=== PATIENT | female | born 1960 | race Caucasian/White ===

== ENCOUNTER 2020-02-12 08:05 | Outpatient (REF) | payer OTHER, SELFPAY ==
--- NOTE | 2020-02-12 08:10 | MM_ITS ---
EXAMINATION: MM SCREENING DIGITAL BREAST TOMOSYNTHESIS, BILATERAL CLINICAL INFORMATION: Screening. Asymptomatic. The lifetime risk of breast cancer based on the Tyrer-Cuzick Model is 7%. COMPARISON: Mammography: 02/06/2019, 02/07/2017 TECHNIQUE: Digital breast tomosynthesis is performed in both the craniocaudal and mediolateral oblique views along with computer-aided detection (CAD). Synthesized 2D images are generated from the tomosynthesis. FINDINGS: There are scattered areas of fibroglandular density (ACR BI-RADS breast composition Category b). There are no significant masses, abnormal calcifications, or other abnormalities. There is no developing density. Biopsy clip marker again seen right breast upper outer quadrant with adjacent stable punctate calcifications. No significant changes. MM/MM tomosynthesis screening BI IMPRESSION: No significant changes from prior studies. ASSESSMENT: BI-RADS 2: Benign RECOMMENDATION: Routine annual mammography screening. This patient's information was entered into a reminder system with a target due date for their next mammogram.
== END 2020-02-12 08:06 | disposition home or self-care (01) ==
LOC: HO.MAMMO 08:05
PROVIDERS: Visit Provider Internal Medicine
DX: Z12.31 Encounter for screening mammogram for malignant neoplasm of breast (principal)
CPT/HCPCS: 77063; 77067

== ENCOUNTER 2020-02-13 09:23 | Outpatient (REF) | payer OTHER, SELFPAY ==
[2020-02-13 10:18] LABS: Hematocrit 38.6 % (37-47); Hemoglobin 12.5 g/dl (12.0-16.0); Mean Corpuscular HGB Conc 32.4 g/dl (31.0-35.0); Mean Corpuscular Hemoglobin 30.9 pg (27.0-33.0); Mean Corpuscular Volume 95.3 fL (80-98); Mean Platelet Volume 10.2 fL (9.4-12.3); Platelet Count 189 X10*3/uL (160-400); Red Blood Count 4.05 X10*6/uL (4.20-5.50); Red Cell Distribution Width 11.9 % (11.0-16.0); White Blood Count 3.6 X10*3/uL (4.8-10.8)
[2020-02-13 10:49] LABS: Alanine Aminotransferase 18 U/L (0-31); Albumin Level 4.3 g/dL (3.5-5.0); Alkaline Phosphatase 103 U/L (39-117); Anion Gap 12 (12-20); Aspartate Amino Transferase 16 U/L (5-31); Bilirubin Direct 0.2 mg/dL (0.0-0.5); Bilirubin Total 0.5 mg/dL (0.0-1.0); Blood Urea Nitrogen 17 mg/dL (9-16); Calcium 8.9 mg/dL (8.4-10.2); Carbon Dioxide 28 mmol/L (22-29); Chloride 102 mmol/L (96-108); Estimated Glomerular Filt Rate > 60; Glucose Random 90 mg/dL (60-115); Potassium 3.9 mmol/l (3.3-5.1); Sodium 138 mmol/L (135-145)
[2020-02-14 14:52] LABS: Absolute CD3 Count 1058 cells/uL (840-3060); Absolute CD4 Count 359 cells/uL (490-1740); Absolute CD8 Count 677 cells/uL (180-1170); Absolute Lymphocytes 1424 cells/uL (850-3900); CD4 CD8 Ratio 0.53 (0.86-5.00); Percent CD3 Cells 74 % (57-85); Percent CD4 Cells 25 % (30-61); Percent CD8 Cells 48 % (12-42)
[2020-02-16 06:52] LABS: HIV RNA PCR Qn Copies <20 NOT DETECTED copies/mL (NOT DETECTED); HIV RNA PCR Qn Log Copies <1.30 NOT DETECTED (NOT DETECTED)
== END 2020-02-13 09:24 | disposition home or self-care (01) ==
LOC: HO.LAB 09:23
PROVIDERS: Visit Provider Internal Medicine
DX: B20 Human immunodeficiency virus [HIV] disease (principal)
CPT/HCPCS: 36415; 80048; 80076; 85027; 86359; 86360; 87536

== ENCOUNTER → 2020-02-26 15:21 | Outpatient (BNVA) | payer OTHER, SELFPAY | PROVIDERS: Visit Provider Internal Medicine | DX: Z76.89 Persons encountering health services in other specified circumstances (principal) ==

== ENCOUNTER 2020-09-04 10:02 | Outpatient (REF) | payer OTHER, SELFPAY ==
[2020-09-05 13:27] LABS: Absolute CD3 Count 1047 cells/uL (840-3060); Absolute CD4 Count 326 cells/uL (490-1740); Absolute CD8 Count 694 cells/uL (180-1170); Absolute Lymphocytes 1337 cells/uL (850-3900); CD4 CD8 Ratio 0.47 (0.86-5.00); Percent CD3 Cells 78 % (57-85); Percent CD4 Cells 24 % (30-61); Percent CD8 Cells 52 % (12-42)
== END 2020-09-04 10:03 | disposition home or self-care (01) ==
LOC: HO.LAB 10:02
PROVIDERS: Visit Provider Internal Medicine
DX: B20 Human immunodeficiency virus [HIV] disease (principal)
CPT/HCPCS: 36415; 86359; 86360

== ENCOUNTER → 2020-09-23 14:24 | Outpatient (BNVA) | payer OTHER, SELFPAY | PROVIDERS: Visit Provider Internal Medicine ==

== ENCOUNTER 2021-03-16 07:59 | Outpatient (REF) | payer OTHER, SELFPAY ==
--- NOTE | ~2021-03-16 | MM_ITS ---
EXAMINATION: MM SCREENING DIGITAL BREAST TOMOSYNTHESIS, BILATERAL CLINICAL INFORMATION: Screening. Asymptomatic. The lifetime risk of breast cancer based on the Tyrer-Cuzick Model is 4%. COMPARISON: Mammography: 02/12/2020, 02/06/2019, 02/07/2017, 07/21/2013 TECHNIQUE: Digital breast tomosynthesis is performed in both the craniocaudal and mediolateral oblique views along with computer-aided detection (CAD). Synthesized 2D images are generated from the tomosynthesis. FINDINGS: There are scattered areas of fibroglandular density (ACR BI-RADS breast composition Category b). There are no significant masses, abnormal calcifications, or other abnormalities. There are scattered bilateral vascular and punctate calcifications. Biopsy clip marker is again seen posterior upper outer right breast with adjacent calcifications similar to prior studies. MM/MM tomosynthesis screening BI IMPRESSION: No mammographic evidence of malignancy. ASSESSMENT: BI-RADS 2: Benign RECOMMENDATION: Routine annual mammography screening. This patient's information was entered into a reminder system with a target due date for their next mammogram.
== END 2021-03-16 08:00 | disposition home or self-care (01) ==
LOC: HO.MAMMO 07:59
PROVIDERS: Visit Provider Internal Medicine
DX: Z12.31 Encounter for screening mammogram for malignant neoplasm of breast (principal)
CPT/HCPCS: 77063; 77067

== ENCOUNTER 2021-04-01 13:18 | Outpatient (REF) | payer OTHER, SELFPAY ==
[2021-04-02 11:26] LABS: Absolute CD3 Count 1672 cells/uL (840-3060); Absolute CD4 Count 474 cells/uL (490-1740); Absolute CD8 Count 1165 cells/uL (180-1170); Absolute Lymphocytes 2077 cells/uL (850-3900); CD4 CD8 Ratio 0.41 (0.86-5.00); Percent CD3 Cells 81 % (57-85); Percent CD4 Cells 23 % (30-61); Percent CD8 Cells 56 % (12-42)
[2021-04-08 07:41] LABS: HIV RNA PCR Qn Copies <20 NOT DETECTED copies/mL (NOT DETECTED); HIV RNA PCR Qn Log Copies <1.30 NOT DETECTED (NOT DETECTED)
== END 2021-04-01 13:19 | disposition home or self-care (01) ==
LOC: HO.LAB 13:18
PROVIDERS: Visit Provider Internal Medicine
DX: B20 Human immunodeficiency virus [HIV] disease (principal)
CPT/HCPCS: 36415; 86359; 86360; 87536

== ENCOUNTER → 2021-04-10 13:42 | Outpatient (BNVA) | payer OTHER, SELFPAY | PROVIDERS: Visit Provider Internal Medicine ==

== ENCOUNTER 2021-11-13 07:00 | Outpatient (REF) | payer OTHER, SELFPAY ==
[2021-11-15 14:26] LABS: HIV RNA PCR Qn Copies NOT DETECTED copies/mL (NOT DETECTED); HIV RNA PCR Qn Log Copies NOT DETECTED (NOT DETECTED)
[2021-11-16 15:02] LABS: Absolute CD3 Count 1085 cells/uL (840-3060); Absolute CD4 Count 292 cells/uL (490-1740); Absolute CD8 Count 755 cells/uL (180-1170); Absolute Lymphocytes 1320 cells/uL (850-3900); CD4 CD8 Ratio 0.39 (0.86-5.00); Percent CD3 Cells 82 % (57-85); Percent CD4 Cells 22 % (30-61); Percent CD8 Cells 57 % (12-42)
== END 2021-11-13 07:01 | disposition home or self-care (01) ==
LOC: HO.LAB 07:00
PROVIDERS: Visit Provider Internal Medicine
DX: B20 Human immunodeficiency virus [HIV] disease (principal)
CPT/HCPCS: 36415; 86359; 86360; 87536

== ENCOUNTER 2022-05-11 10:07 | Outpatient (REF) | payer OTHER, SELFPAY ==
[2022-05-11 10:36] LABS: MANUAL DIFF FLAG NO
[2022-05-11 10:49] LABS: Basophils Absolute Auto 0.1 X10*3/uL (0.0-0.2); Basophils Percent Auto 1.2 % (0-2); Hematocrit 37.5 % (37.0-47.0); Hemoglobin 12.4 g/dl (12.0-16.0); Imm Gran Abs Auto 0.02 X10*3/uL (0.00-0.03); Imm Gran Pct Auto 0.5 % (0.0-0.4); Lymphocytes Absolute Auto 1.5 X10*3/uL (1.2-4.9); Lymphocytes Percent Auto 36.8 % (20-40); Mean Corpuscular HGB Conc 33.1 g/dl (31.0-35.0); Mean Corpuscular Hemoglobin 30.7 pg (27.0-33.0); Mean Corpuscular Volume 92.8 fL (80.0-98.0); Monocytes Absolute Auto 0.4 X10*3/uL (0.1-1.2); Monocytes Percent Auto 10.5 % (2-11); Neutrophils Absolute Auto 2.1 x10*3/uL (2.0-8.3); Platelet Count 255 X10*3/uL (160-400); Red Blood Count 4.04 X10*6/uL (4.20-5.50); Red Cell Distribution Width 11.9 % (11.0-16.0); White Blood Count 4.2 X10*3/uL (4.8-10.8)
[2022-05-11 11:27] LABS: Alanine Aminotransferase 13 U/L (0-31); Albumin Level 3.9 g/dL (3.5-5.0); Alkaline Phosphatase 94 U/L (39-117); Anion Gap 15 (12-20); Aspartate Amino Transferase 14 U/L (5-31); Bilirubin Direct < 0.2 mg/dL (0.0-0.5); Bilirubin Total 0.6 mg/dL (0.0-1.0); Blood Urea Nitrogen 22 mg/dL (9-16); Calcium 9.2 mg/dL (8.4-10.2); Carbon Dioxide 26 mmol/L (22-29); Chloride 105 mmol/L (96-108); Estimated Glomerular Filt Rate > 60; Glucose Random 97 mg/dL (60-115); Potassium 4.5 mmol/L (3.3-5.1); Sodium 141 mmol/L (135-145); Total Protein 6.6 g/dL (6.5-8.0)
[2022-05-12 05:03] LABS: ~HepC Num1 0.15 S/CO (0.00-0.79); ~Hepatitis C Antibody Nonreactive (Nonreactive)
[2022-05-12 20:39] LABS: HIV RNA PCR Qn Copies NOT DETECTED copies/mL (NOT DETECTED); HIV RNA PCR Qn Log Copies NOT DETECTED (NOT DETECTED)
[2022-05-13 13:53] LABS: Absolute CD3 Count 1236 cells/uL (840-3060); Absolute CD4 Count 332 cells/uL (490-1740); Absolute CD8 Count 887 cells/uL (180-1170); Absolute Lymphocytes 1560 cells/uL (850-3900); CD4 CD8 Ratio 0.37 (0.86-5.00); Percent CD3 Cells 79 % (57-85); Percent CD4 Cells 21 % (30-61); Percent CD8 Cells 57 % (12-42)
== END 2022-05-11 10:08 | disposition home or self-care (01) ==
LOC: HO.LAB 10:07
PROVIDERS: Visit Provider Internal Medicine
DX: B20 Human immunodeficiency virus [HIV] disease (principal)
CPT/HCPCS: 36415; 80048; 80076; 85025; 86359; 86360; 86803; 87536

== ENCOUNTER → 2022-05-26 13:46 | Outpatient (BNVA) | payer OTHER, SELFPAY | PROVIDERS: PCP Internal Medicine; Visit Provider Internal Medicine | DX: Z13.89 Encounter for screening for other disorder (principal) ==

== ENCOUNTER 2022-07-16 08:02 | Outpatient (REF) | payer OTHER, SELFPAY ==
--- NOTE | ~2022-07-16 | MM_ITS ---
EXAMINATION: MM SCREENING DIGITAL BREAST TOMOSYNTHESIS, BILATERAL CLINICAL INFORMATION: Screening. Asymptomatic. The lifetime risk of breast cancer based on the Tyrer-Cuzick Model is 5%. COMPARISON: Mammography: 03/16/2021, 02/12/2020, 02/06/2019 TECHNIQUE: Digital breast tomosynthesis is performed in both the craniocaudal and mediolateral oblique views along with computer-aided detection (CAD). Synthesized 2D images are generated from the tomosynthesis. FINDINGS: There are scattered areas of fibroglandular density (ACR BI-RADS breast composition Category b). Parenchymal pattern is similar to prior exams and there is no developing density or architectural abnormality. Again, there are scattered bilateral punctate and vascular calcifications. Right breast has biopsy clip marker posterior upper outer quadrant with adjacent calcifications similar to prior studies. The axilla and skin contours are unremarkable. No significant changes. MM/MM tomosynthesis screening BI IMPRESSION: No mammographic evidence of malignancy. ASSESSMENT: BI-RADS 2: Benign RECOMMENDATION: Routine annual mammography screening. This patient's information was entered into a reminder system with a target due date for their next mammogram.
== END 2022-07-16 08:03 | disposition home or self-care (01) ==
LOC: HO.MAMMO 08:02
PROVIDERS: PCP Internal Medicine; Visit Provider Internal Medicine
DX: Z12.31 Encounter for screening mammogram for malignant neoplasm of breast (principal)
CPT/HCPCS: 77063; 77067

== ENCOUNTER 2022-11-10 07:58 | Outpatient (REF) | payer OTHER, SELFPAY ==
[2022-11-10 08:29] LABS: MANUAL DIFF FLAG NO
[2022-11-10 08:52] LABS: Basophils Percent Auto 0.6 % (0-2); Eosinophils Absolute Auto 0.1 X10*3/uL (0.0-0.4); Eosinophils Percent Auto 1.5 % (0-4); Hematocrit 38.4 % (37.0-47.0); Hemoglobin 12.5 g/dl (12.0-16.0); Imm Gran Abs Auto 0.01 X10*3/uL (0.00-0.03); Imm Gran Pct Auto 0.3 % (0.0-0.4); Lymphocytes Absolute Auto 1.4 X10*3/uL (1.2-4.9); Lymphocytes Percent Auto 41.7 % (20-40); Mean Corpuscular HGB Conc 32.6 g/dl (31.0-35.0); Mean Corpuscular Hemoglobin 31.1 pg (27.0-33.0); Mean Corpuscular Volume 95.5 fL (80.0-98.0); Mean Platelet Volume 9.5 fL (9.4-12.3); Monocytes Absolute Auto 0.4 X10*3/uL (0.1-1.2); Monocytes Percent Auto 10.4 % (2-11); Neutrophils Absolute Auto 1.5 x10*3/uL (2.0-8.3); Neutrophils Percent Auto 45.5 % (45-73); Platelet Count 207 X10*3/uL (160-400); Red Blood Count 4.02 X10*6/uL (4.20-5.50); Red Cell Distribution Width 12.4 % (11.0-16.0); White Blood Count 3.4 X10*3/uL (4.8-10.8)
[2022-11-10 09:46] LABS: Alanine Aminotransferase 16 U/L (0-31); Alkaline Phosphatase 85 U/L (39-117); Anion Gap 12 (12-20); Aspartate Amino Transferase 19 U/L (5-31); Bilirubin Direct 0.2 mg/dL (0.0-0.5); Bilirubin Total 0.6 mg/dL (0.0-1.0); Blood Urea Nitrogen 17 mg/dL (9-16); Calcium 8.9 mg/dL (8.4-10.2); Carbon Dioxide 28 mmol/L (22-29); Chloride 106 mmol/L (96-108); Estimated Glomerular Filt Rate > 60; Glucose Random 91 mg/dL (60-115); Potassium 3.9 mmol/L (3.3-5.1); Sodium 142 mmol/L (135-145)
[2022-11-10 10:08] LABS: ~HepC Num1 0.14 S/CO (0.00-0.79); ~Hepatitis C Antibody Nonreactive (Nonreactive)
[2022-11-10 10:11] LABS: Syphilis Screen Nonreactive (Nonreactive)
[2022-11-11 13:04] LABS: Absolute CD3 Count 1038 cells/uL (840-3060); Absolute CD4 Count 289 cells/uL (490-1740); Absolute CD8 Count 712 cells/uL (180-1170); Absolute Lymphocytes 1342 cells/uL (850-3900); CD4 CD8 Ratio 0.41 (0.86-5.00); Percent CD3 Cells 77 % (57-85); Percent CD4 Cells 22 % (30-61); Percent CD8 Cells 53 % (12-42)
[2022-11-12 15:33] LABS: HIV RNA PCR Qn Copies <20 DETECTED copies/mL (NOT DETECTED); HIV RNA PCR Qn Log Copies <1.30 DETECTED (NOT DETECTED)
== END 2022-11-10 07:59 | disposition home or self-care (01) ==
LOC: HO.LAB 07:58
PROVIDERS: PCP Internal Medicine; Visit Provider Internal Medicine
DX: B20 Human immunodeficiency virus [HIV] disease (principal)
CPT/HCPCS: 36415; 80048; 80076; 85025; 86359; 86360; 86780; 86803; 87536

== ENCOUNTER 2022-11-22 14:18 | Outpatient (AMB) | payer OTHER, SELFPAY ==
[2022-11-22 14:23] VITALS: BP 120/80; PULSE 68; O2SAT 98; BMI 27.6
--- NOTE | 2022-11-22 14:23 | MHC.OFFVIS ---
Intake Vital Signs 11/22/22 14:23 Height 5 ft 1 in Weight 146 lb BMI 27.6 BP 120/80 Blood Pressure Location Lt brachial Position Sitting Pulse 68 Pulse Source Pulse Oximeter Pulse Oximetry (%) 98 Intake Visit Reasons: HIV labs follow up Allergies No Known Allergies Allergy (Verified 11/22/22 14:23) HPI HIV labs follow up HPI Details She is doing well. She is UTD on healthcare issues. She has CD4 count 289 on November 10 down from 332 last check. Her viral load is undetectable. She has WBC decreased to 3.4 from 4.4 when drawn. She takes Biktarvy. [facility] Medical History HIV (human immunodeficiency virus infection) Social History Patient Tobacco Use Status: Never used Tobacco Review of Systems Const All systems reviewed & are unremarkable except as noted in HPI and below Physical Exam Vital Signs: Last Vital Signs Pulse 68 11/22/22 14:23 BP 120/80 11/22/22 14:23 Pulse Ox 98 11/22/22 14:23 BMI result Body Mass Index 27.6 Const General: cooperative Orientation/consciousness: patient oriented x3 HEENT Head: Yes normal to inspection Mouth: Normal oral and palatal mucosa present Eyes General: appearance normal, both eyes and all related structures Pupils: Equal, round and reactive pupils present Resp Effort & Inspection: normal respiratory effort Cardio Rate: regular rate Rhythm: regular rhythm GI Palpation (GI): Soft to palpation and nontender General: Yes no CVA tenderness Back/Spine/Pelvis Back: no CVA tenderness Skin General skin exam: no rashes or lesions noted Neuro General: patient oriented x3 Cranial nerves: Yes CN's II-XII intact bilaterally and Yes Equal, round and reactive pupils present Extrem General: Yes normal to inspection Psych Appearance: grossly normal Assessment & Plan Assessment & Plan (1) HIV (human immunodeficiency virus infection): Comment: Her CD4 count fluctuates with WBC. She is not ill and has no complaints so likely no clinical concern. Viral load is undetectable. Code(s): B20 - Human immunodeficiency virus [HIV] disease Plan: Check CD4 count and HIV viral load April. See in April 2023. Continue Biktarvy. Coding Level of Care Code Est Pt Level 3 (64529) Diagnoses HIV (human immunodeficiency virus infection) B20
== END 2022-11-22 15:01 | disposition home or self-care (01) ==
LOC: HO.HID 14:18
PROVIDERS: PCP Internal Medicine; Visit Provider Internal Medicine
DX: B20 Human immunodeficiency virus [HIV] disease (principal)
CPT/HCPCS: 99213

== ENCOUNTER → 2022-11-22 14:18 | Outpatient (BNVA) | payer OTHER, SELFPAY | PROVIDERS: PCP Internal Medicine; Visit Provider Internal Medicine ==

== ENCOUNTER 2023-05-27 14:39 | Outpatient (REF) | payer OTHER, SELFPAY ==
[2023-05-28 03:39] LABS: Syphilis Screen Nonreactive (Nonreactive)
[2023-05-28 03:59] LABS: ~Hepatitis C Antibody Nonreactive (Nonreactive)
[2023-05-29 07:59] LABS: HIV RNA PCR Qn Copies <20 DETECTED copies/mL (NOT DETECTED); HIV RNA PCR Qn Log Copies <1.30 DETECTED (NOT DETECTED)
[2023-05-30 11:14] LABS: Absolute CD3 Count 1097 cells/uL (840-3060); Absolute CD4 Count 307 cells/uL (490-1740); Absolute CD8 Count 778 cells/uL (180-1170); Absolute Lymphocytes 1397 cells/uL (850-3900); Percent CD3 Cells 79 % (57-85); Percent CD4 Cells 22 % (30-61); Percent CD8 Cells 56 % (12-42)
== END 2023-05-27 14:40 | disposition home or self-care (01) ==
LOC: HO.HMGCLDS 14:39
PROVIDERS: PCP Internal Medicine; Visit Provider Internal Medicine
DX: B20 Human immunodeficiency virus [HIV] disease (principal)
CPT/HCPCS: 36415; 86359; 86360; 86780; 86803; 87536

== ENCOUNTER 2023-06-08 14:02 | Outpatient (AMB) | payer OTHER, SELFPAY ==
--- NOTE | 2023-06-08 14:01 | A.OFFVIS_ITS ---
Intake Vital Signs 06/08/23 14:03 Height 5 ft 1 in Weight 144 lb BMI 27.2 Pulse 84 Pulse Source Pulse Oximeter Pulse Oximetry (%) 99 Intake Visit Reasons: hiv labs follow up Allergies No Known Allergies Allergy (Verified 06/08/23 14:04) HPI hiv labs follow up HPI Details She is doing well. She is up to date on healthcare maintenance strategies. She was last seen on 11/22/2022. She has CD4 count of 307 and viral load undetectable on 05/26. She has no issues and continues on Biktarvy. [facility] Medical History HIV (human immunodeficiency virus infection) Social History Patient Tobacco Use Status: Never used Tobacco Review of Systems Const All systems reviewed & are unremarkable except as noted in HPI and below Physical Exam Vital Signs: Last Vital Signs Pulse 84 06/08/23 14:03 Pulse Ox 99 06/08/23 14:03 BMI result Body Mass Index 27.2 Const General: cooperative HEENT Head: Yes normal to inspection Face and sinus: Yes normal facial exam Mouth: Normal oral and palatal mucosa present Teeth and gingiva: dentition normal Eyes General: appearance normal, both eyes and all related structures Pupils: Equal, round and reactive pupils present Resp Effort & Inspection: normal respiratory effort Cardio Rate: regular rate Rhythm: regular rhythm GI Palpation (GI): Soft to palpation and nontender General: Yes no CVA tenderness Back/Spine/Pelvis Back: no CVA tenderness Skin General skin exam: no rashes or lesions noted Neuro General: moves all extremities Cranial nerves: Yes Equal, round and reactive pupils present Extrem General: Yes normal to inspection Psych Appearance: grossly normal Assessment & Plan Assessment & Plan (1) HIV (human immunodeficiency virus infection): Comment: Her CD4 count improved since last visit but has always been undetectable so no concerns. Code(s): B20 - Human immunodeficiency virus [HIV] disease Plan Continue Biktarvy. Check CD4 count and viral load in six months and in one year. See in one year. I did order labs and one years worth of refills medication. Orders: Orders HIV-1 RNA QN PCR Expanded 1 Year B20 - Human immunodeficiency virus [HIV] disease Complete Blood Count Auto Diff 1 Year B20 - Human immunodeficiency virus [HIV] disease T Spot TB 1 Year B20 - Human immunodeficiency virus [HIV] disease Syphilis Screen 1 Year B20 - Human immunodeficiency virus [HIV] disease HIV-1 RNA QN PCR Expanded 6 Months B20 - Human immunodeficiency virus [HIV] disease Lymphocyte Subset Panel 3 6 Months B20 - Human immunodeficiency virus [HIV] disease Lymphocyte Subset Panel 3 1 Year B20 - Human immunodeficiency virus [HIV] diseas e Basic Metabolic Panel 1 Year B20 - Human immunodeficiency virus [HIV] disease Liver Panel 1 Year B20 - Human immunodeficiency virus [HIV] disease Hepatitis C Antibody 1 Year B20 - Human immunodeficiency virus [HIV] disease Medications: Refilled 2 nlrkfwzcg-odfpncyk-skksqvq ala 50-200-25 mg (Biktarvy) 1 tab PO DAILY 30 tabs 11RF 30 days Coding Level of Care Code Est Pt Level 4 (29663) Diagnoses HIV (human immunodeficiency virus infection) B20
[2023-06-08 14:03] VITALS: PULSE 84; O2SAT 99; BMI 27.2
== END 2023-06-08 14:34 | disposition home or self-care (01) ==
LOC: HO.HID 14:02
PROVIDERS: PCP Internal Medicine; Visit Provider Internal Medicine
DX: B20 Human immunodeficiency virus [HIV] disease (principal)
CPT/HCPCS: 99214

== ENCOUNTER → 2023-06-08 14:02 | Outpatient (BNVA) | payer OTHER, SELFPAY | PROVIDERS: PCP Internal Medicine; Visit Provider Internal Medicine ==

== ENCOUNTER 2024-01-28 07:50 | Outpatient (REF) | payer OTHER, SELFPAY ==
--- NOTE | ~2024-01-28 | MM_ITS ---
EXAMINATION: MM SCREENING DIGITAL BREAST TOMOSYNTHESIS, BILATERAL CLINICAL INFORMATION: Screening. Asymptomatic. COMPARISON: Mammography: Comparison is made with available priors TECHNIQUE: Digital breast mammography with tomosynthesis is performed in both the craniocaudal and mediolateral oblique views along with computer-aided detection (CAD). FINDINGS: There are scattered areas of fibroglandular density (ACR BI-RADS breast composition Category b). Right marker clip. There are no significant masses, abnormal calcifications, or other abnormalities. MM/MM tomosynthesis screening BI IMPRESSION: No mammographic evidence of malignancy. ASSESSMENT: BI-RADS BI-RADS 2 - Benign Findings RECOMMENDATION: Routine annual mammography screening. 1 year F/U This examination should not preclude the clinical evaluation of a suspicious palpable abnormality. This patient's information was entered into a reminder system with a target due date for their next mammogram. Electronically signed by: Chantel Valentino DO 02/06/2024 07:41 PM GRACE
== END 2024-01-28 07:51 | disposition home or self-care (01) ==
LOC: HO.MAMMO 07:50
PROVIDERS: PCP Internal Medicine; Visit Provider Internal Medicine
DX: Z12.31 Encounter for screening mammogram for malignant neoplasm of breast (principal)
CPT/HCPCS: 77063; 77067

== ENCOUNTER → 2024-01-28 08:00 | Outpatient (BNV) | payer OTHER, SELFPAY | PROVIDERS: PCP Internal Medicine; Visit Provider Internal Medicine | DX: Z12.31 Encounter for screening mammogram for malignant neoplasm of breast (principal) | CPT/HCPCS: 77063; 77067 ==

== ENCOUNTER 2024-06-29 07:57 | Outpatient (REF) | payer OTHER, SELFPAY ==
--- OUTSIDE RECORDS SUMMARY | 2024-06-29 08:05 | XMS_ITS | Encounter Summary ---
Author Organization [facility] Address [address] [place] [id number] Care Team Providers Care Load Dropper Name Role Phone Norbert Cosme NP Primary Care Provider [phone] Reason for Visit * Reason Onset Date Comments SPECIAL PROCEDURE 06/28/2024 Encounter Details Date Type Department Care Team (Late st Contact Info) Description 06/28/2024 Telephone Gastroenterology - [address] [place] [id number] Gordon Meza MD [address] [place] [address] SPECIAL PROCEDURE Social History Tobacco Use Types Packs/Day Years Used Date Smoking Tobacco: Former Cigarettes Q uit: 03/28/1989 Smokeless Tobacco: Never Alcohol Use Standard Drinks/Week Comments Yes 0 (1 standard drink = 0.6 oz pur e alcohol) Comments Unknown Sex and Gender Information Value Date Recorded Sex Assigned at Not on file Legal Sex Female 3:32 PM EST Gender Identity Not on file Sexual Orientation Not on file documented as of this encounter Progress Notes * Fe Campbell - 06/28/2024 2:49 PM EDT RECORDS RECEIVED FROM NORBERT COSME FOR DIRECT BOOK. GIVEN TO [facility] TO UPDATE MEDS AND ALLERGIES documented in this encounter Plan of Treatment Not on file documented as of this encounter Visit Diagnoses Not on filedocumented in this encounter Care Teams Load Dropper Relationship Specialty Start Date End Date Norbert Cosme NP [facility] [address] [place] [address] PCP - General Nurse Practitioner 06/28/24 documented as of this encounter
--- OUTSIDE RECORDS SUMMARY | 2024-06-29 08:05 | XMS_ITS | Clinical Summary ---
Author Organization [facility] [address] [facility] Address [address] [place] [address] Phone Care Team Providers Care Export Packer Name Role Phone BaNorbert tomas JENNIFER Primary Care Provider [phone] Allergies No known active allergies Medications efavirenz/emtric it/tenofovr df (ATRIPLA ORAL) Take by mouth. Active Active Problems Problem Noted Date Diagnosed Date HIV (human immunodeficiency virus infection) 12/2014 Overview (04/13/2024): Followed by Donna Kasper Encounters Date Type Department Care Team Description 06/28/2024 Telephone Gastroenterology - [address] [address] Gordon Meza MD SPECIAL PROCEDURE from Last 3 Months Immunizations Name Administration Dates Next Due Hep B, Unspecified 12/13/1994 Hepatitis A Pediatric (Havri x; Vaqta) 12mo to less than 19yo 11/24/2005,05/03/2005 Hepatitis B Pediatric (Enger ix B; Recombivax HB) to less than 20 yo 06/13/1996 Influenza trivalent, with preservative (Fluzone; Afluria) 6mo and older 01/26/2015,02/06/2004,03/04/2003 Measles 06/13/1996 Mumps 01/06/1998 Td Tetanus diptheria (Tdvax) 7yo and older 04/16/2009,02/13/2008,07/10/2002,1996 Tdap Tetanus diptheria acell ular pertussis (Boostrix; Adacel) 7yo and older 05/09/2015 Varicella live (Varivax) 12m o and older 06/13/1996 Surgical History Surgery Date Site/Laterality Comments HYSTERECTOMY 1998 PROCEDURE: HISTORICAL HYSTERECTOMY COLONOSCOPY September 2014 PROCEDURE: HISTORICAL COLONOSCOPY; COMMENT: Diminutive polyp, diverticulosis, hemorrhoids Medical History Medical History Date Comments HIV (human immunodeficiency virus infection) ([facility]) DX:HIV (human immunodeficien cy virus infection) ([facility]) HIV (human immunodeficiency virus infection) ([facility]) 09/04/2014 DX:HIV (human immunodeficien cy virus infection) ([facility]) Family History Medical History Relation Name Comments Other: Other Father heart disease a t age 78 Relation Name Status Comments Father Social History Tobacco Use Types Packs/Day Years [...] on file Sexual Orientation Not on file Obstetrics History Plan of Treatment Health Maintenance Due Date Last Done Comments Breast Cancer Screening 1960 Meningococcal ACWY Vaccine (1 - Risk 2-dose series) 1960 COVID-19 Vaccine (#1) 07/09/1963 Pneumococcal Vaccine: 50+ Years (1 of 2 - PCV) 1977 Pneumococcal Vaccine: Pediatrics (0 to 5 Years) and At-Risk Patients (6 to 64 Years) (1 of 2 - PCV) 1977 Hepatitis B Vaccines (2 of 3 - Risk 3-dose series) 07/11/1996 06/13/1996, 12/13/1994 MMR Vaccines (1 of 2 - Risk 2-dose series) 07/11/1996 Zoster Vaccines (1 of 2) 08/08/1996 06/13/1996 Cervical Cancer Screening: Pap Smear 09/10/2017 09/10/2014 RSV Immunization Adult Patients (1 - Risk 60-74 years 1-dose series) 2018 Hepatitis A Vaccines (2 of 2 - Risk 2-dose series) 01/27/2023 07/27/2022, 11/24/2005, 05/03/2005 Colorectal Cancer Screening: Colonoscopy 04/12/2024 10/08/2014, 10/08/2014 Depression Screening 04/12/2024 Falls Risk Assessment 04/12/2024 Social Influencers of Health Screening 04/12/2024 Influenza Vaccine (Season Ended) 2024 01/26/2015, 02/06/2004, 03/04/2003 DTaP,Tdap,and Td Vaccines (6 - Td or Tdap) 05/09/2025 05/09/2015, 04/16/2009, 02/13/2008, Additional history exists Osteoporosis Screening (Bone Density Screening) 05/27/2025 05/28/2015 Varicella Vaccines Aged Out 06/13/1996 No longer eligible based on patient's age to complete this topic Hepatitis C Screening Completed 08/03/2013 HIB Vaccines Aged Out No longer eligi ble based on patient's age to complete this topic HPV Vaccines Aged Out No longer eligi ble based on patient's age to complete this topic IPV Vaccines Aged Out No longer eligi ble based on patient's age to complete this topic Meningococcal B Vacine Aged Out No lo nger eligible based on patient's age to complete this topic RSV Immunization Patients Under 20 months Aged Out No longer eligible based on patient's age to complete this topic Procedures Procedure Name Priority Date/Time Associated Diagnosis Comments PAP SMEAR Routine 09/10/2014 HEPATITIS C SCREENING Routine 08/03/2013 from Last 3 Months or Most Recently Relevant to Health Maintenance Results * Pap Smear (09/10/2014) Pap smear no interpretation , abstracted Historical Provider HEALTH MAINTENANCE Final Result * Hepatitis C Screening (08/03/2013) Hepatitis C Screening abstracted Historical Provider HEALTH MAINTENANCE Final Result from Last 3 Months or Most Recently Relevant to Health Maintenance Care Teams Export Packer Relationship Specialty Start Date End Date Norbert Cosme NP [facility] [address] [facility] [place] [address] PCP - General Nurse Practitioner 06/28/24
[2024-06-29 10:12] LABS: MANUAL DIFF FLAG NO
[2024-06-29 10:19] LABS: Basophils Percent Auto 0.8 % (0-2); Hemoglobin 10.8 g/dl (12.0-16.0); Imm Gran Abs Auto 0.01 X10*3/uL (0.00-0.03); Imm Gran Pct Auto 0.3 % (0.0-0.4); Lymphocytes Absolute Auto 1.7 X10*3/uL (1.2-4.9); Lymphocytes Percent Auto 43.8 % (20-40); Mean Corpuscular HGB Conc 31.8 g/dl (31.0-35.0); Mean Corpuscular Hemoglobin 29.2 pg (27.0-33.0); Mean Corpuscular Volume 91.9 fL (80.0-98.0); Mean Platelet Volume 9.8 fL (9.4-12.3); Monocytes Absolute Auto 0.4 X10*3/uL (0.1-1.2); Monocytes Percent Auto 10.7 % (2-11); Neutrophils Absolute Auto 1.7 x10*3/uL (2.0-8.3); Neutrophils Percent Auto 43.4 % (45-73); Platelet Count 231 X10*3/uL (160-400); Red Cell Distribution Width 11.8 % (11.0-16.0); White Blood Count 3.8 X10*3/uL (4.8-10.8)
[2024-06-29 10:54] LABS: Alanine Aminotransferase 14 U/L (0-31); Albumin Level 4.1 g/dL (3.5-5.0); Alkaline Phosphatase 89 U/L (39-117); Anion Gap 10 (12-20); Aspartate Amino Transferase 18 U/L (5-31); Bilirubin Direct 0.1 mg/dL (0.0-0.5); Bilirubin Total 0.3 mg/dL (0.0-1.0); Blood Urea Nitrogen 26 mg/dL (9-16); Calcium 8.8 mg/dL (8.4-10.2); Carbon Dioxide 27 mmol/L (22-29); Chloride 109 mmol/L (96-108); Estimated Glomerular Filt Rate > 60; Glucose Random 78 mg/dL (60-115); Potassium 3.5 mmol/L (3.3-5.1); Sodium 142 mmol/L (135-145)
[2024-06-29 10:58] LABS: Syphilis Screen Nonreactive (Nonreactive)
[2024-06-29 11:17] LABS: ~Hepatitis C Antibody Nonreactive (Nonreactive)
[2024-07-01 08:09] LABS: HIV RNA PCR Qn Copies NOT DETECTED copies/mL (NOT DETECTED); HIV RNA PCR Qn Log Copies NOT DETECTED (NOT DETECTED)
[2024-07-02 12:48] LABS: TS Negative Control Passed; TS Panel A 0; TS Panel B 1; TS Positive Control Passed; TSpotTB Negative (Negative)
[2024-07-04 17:17] LABS: Absolute CD3 Count 1373 cells/uL (840-3060); Absolute CD4 Count 452 cells/uL (490-1740); Absolute CD8 Count 924 cells/uL (180-1170); Absolute Lymphocytes 1680 cells/uL (850-3900); CD4 CD8 Ratio 0.49 (0.86-5.00); Percent CD3 Cells 82 % (57-85); Percent CD4 Cells 27 % (30-61); Percent CD8 Cells 55 % (12-42)
== END 2024-06-29 07:58 | disposition home or self-care (01) ==
LOC: HO.HMGCLDS 07:57
PROVIDERS: PCP Nurse Practitioner; Visit Provider Internal Medicine
DX: B20 Human immunodeficiency virus [HIV] disease (principal)
CPT/HCPCS: 36415; 80048; 80076; 85025; 86359; 86360; 86481; 86780; 86803; 87536

== ENCOUNTER 2024-07-02 14:45 | Outpatient (AMB) | payer OTHER, SELFPAY ==
[2024-07-02 14:58] VITALS: PULSE 91; O2SAT 98; BMI 27.6
--- NOTE | 2024-07-02 14:58 | MHC.OFFVIS ---
Vital Signs 07/02/24 14:58 Height 5 ft 1 in Weight 146 lb BMI 27.6 Pulse 91 Pulse Source Pulse Oximeter Pulse Oximetry (%) 98 Oxygen Delivery Method Room Air Intake Visit Reasons: HIV ok per Allergies No Known Allergies Allergy (Verified 07/02/24 14:58) HPI HPI HIV ok per : Details: She is doing well in last year. She has new PCP at [facility]. She has had physical recently. She did labs and had HIV viral load undetectable on 06/29. She has no new medications and no hypertension or hypercholesterolemia. [facility] Medical History HIV (human immunodeficiency virus infection) Social History Patient Tobacco Use Status: Never used Tobacco Review of Systems Const All systems reviewed & are unremarkable except as noted in HPI and below Physical Exam Vital Signs: Last Vital Signs Pulse 91 07/02/24 14:58 Pulse Ox 98 07/02/24 14:58 Oxygen Delivery Method Room Air 07/02/24 14:58 BMI result Body Mass Index 27.6 Const General: cooperative Orientation/consciousness: patient oriented x3 HEENT Head: Yes normal to inspection Mouth: Normal oral and palatal mucosa present Eyes General: appearance normal, both eyes and all related structures Pupils: Equal, round and reactive pupils present Resp Effort & Inspection: normal respiratory effort Cardio Rate: regular rate Rhythm: regular rhythm GI Palpation (GI): Soft to palpation and nontender General: Yes no CVA tenderness Back/Spine/Pelvis Back: no CVA tenderness Skin General skin exam: no rashes or lesions noted Neuro General: patient oriented x3 Cranial nerves: Yes CN's II-XII intact bilaterally and Yes Equal, round and reactive pupils present Extrem General: Yes normal to inspection Psych Appearance: grossly normal Assessment & Plan Assessment & Plan (1) HIV (human immunodeficiency virus infection): Comment: She has undetectable viral load but CD4 count still pending. She has seen her PCP for physical. Code(s): B20 - Human immunodeficiency virus [HIV] disease Category: Medical Plan: Continue Biktarvy,one month and 11 refills. See next year. Plan Check bone density Check anal and vaginal Pap evaluate for malignancies. Colonoscopy. PCV-20 (pneumonia vaccine),MCV-4 (meningitis vaccine) and shingles vaccine. See in one year. Orders: Orders HIV-1 RNA QN PCR Expanded 11 Months B20 - Human immunodeficiency virus [HIV] disease Lymphocyte Subset Panel 3 11 Months B20 - Human immunodeficiency virus [HIV] disease Basic Metabolic Panel 11 Months B20 - Human immunodeficiency virus [HIV] disease Liver Panel 11 Months B20 - Human immunodeficiency virus [HIV] disease Complete Blood Count Auto Diff 11 Months B20 - Human immunodeficiency virus [HIV] disease Medications: Refilled osqdtjrjn-gkftpnuf-xfmhzmp ala 50-200-25 mg (Biktarvy) 1 tab PO DAILY 30 tabs 11RF 30 days Coding Level of Care Code Est Pt Level 4 (79101) Diagnoses HIV (human immunodeficiency virus infection) B20
--- OUTSIDE RECORDS SUMMARY | 2024-07-02 17:38 | XMS_ITS | Encounter Summary ---
[facility] Address [address] [place] [id number] Care Team Providers Care Poolroom Table Attendant Name Role Phone BaNorbert tomas JENNIFER Primary Care Provider [phone] Reason for Visit * Reason Onset Date Comments SPECIAL PROCEDURE 06/28/2024 Encounter Details Date Type Department Care Team (Late st Contact Info) Description 06/28/2024 Telephone Gastroenterology - [address] [place] [phone] Gordon Meza MD [address] [place] [address] SPECIAL PROCEDURE Social History Tobacco Use Types [...] as of this encounter Progress Notes * Vika Jalloh MA - 07/02/2024 1:25 PM EDT Left message for patient to call office and schedule 10 year repeat colon any provider. * Chun Smith MA - 06/29/2024 8:26 AM EDT Medications and allergies updated. * Fe Campbell - 06/28/2024 2:49 PM EDT RECORDS RECEIVED FROM NORBERT COSME FOR DIRECT BOOK. GIVEN TO ALEXANDER TO UPDATE MEDS AND ALLERGIES documented in this encounter Plan of Treatment Not on file documented as of this encounter Visit Diagnoses Not on filedocumented in this encounter Discontinued Medications Medication Sig Discontinue Reason Start Date End Da te efavirenz/emtricit/tenofovr df (ATRIPLA ORAL) Take by mouth. 06/29/2024 documented as of this encounter Care Teams Poolroom Table Attendant Relationship Specialty Start Date End Date Norbert Cosme NP [facility] [address] [place] [address] PCP - General Nurse Practitioner 06/28/24 documented as of this encounter
--- OUTSIDE RECORDS SUMMARY | 2024-07-02 17:38 | XMS_ITS | Clinical Summary ---
Author Organization [facility] 299 [facility] Address [address] [place] [address] Phone Care Team Providers Care Railroad Auditor Name Role Phone BaNorbert tomas JENNIFER Primary Care Provider [phone] Allergies No known active allergies Medications efavirenz/emtri cit/tenofovr df (ATRIPLA ORAL) Take by mouth. 06/30/19 25 Discontinued Active Problems Problem Noted Date Diagnosed Date HIV (human immunodeficiency virus infection) 12/2014 Overview (04/13/2024): Followed by Donna Kasper Encounters Date Type Department Care Team Description 06/28/2024 Telephone Gastroenterology - [address] [phone] Gordon Meza MD SPECIAL PROCEDURE [...] Date Comments HIV (human immunodeficiency virus infection) ([facility]) DX:HIV (human immunodeficien cy virus infection) ([facility]) HIV (human immunodeficiency virus infection) ([facility]) 09/04/2014 DX:HIV (human immunodeficien cy virus infection) ([facility]) Family History Medical History Relation Name Comments [...] age to complete this topic Meningococcal B Vaccine Aged Out No l onger eligible based on patient's age to complete [...] Recently Relevant to Health Maintenance Care Teams Railroad Auditor Relationship Specialty Start Date End Date Norbert Cosme NP [facility] [address] [place] [address] PCP - General Nurse Practitioner 06/28/24
== END 2024-07-02 15:52 | disposition home or self-care (01) ==
LOC: HO.HID 14:46
PROVIDERS: PCP Nurse Practitioner; Visit Provider Internal Medicine
DX: B20 Human immunodeficiency virus [HIV] disease (principal)
CPT/HCPCS: 99214

== ENCOUNTER 2024-07-10 14:30 | Outpatient (REF) | payer OTHER, SELFPAY ==
--- OUTSIDE RECORDS SUMMARY | 2024-07-10 18:26 | XMS_ITS | Clinical Summary ---
Author Organization [address] Address [address] [place] [phone] Phone Care Team Providers Care Can Marker Name Role Phone BaNorbert tomas JENNIFER Primary Care Provider [phone] Allergies No known active allergies Medications efavirenz/emtri cit/tenofovr df (ATRIPLA ORAL) Take by mouth. 06/30/19 25 Discontinued Active Problems Problem Noted Date Diagnosed Date HIV (human immunodeficiency virus infection) ([facility] V24, [facility] V28) 09/04/2014 Overview (04/13/2024): Followed by Donna Kasper Encounters Date Type Department Care Team Description 06/28/2024 Telephone Gastroenterology - [address] [place] [phone] Gordon Meza MD SPECIAL PROCEDURE from [...] Date Comments HIV (human immunodeficiency virus infection) ([facility] V24, [facility] V28) DX:HIV (human im munodeficiency virus infection) ([facility]) HIV (human immunodeficiency virus infection) ([facility] V24, [facility] V28) 09/04/2014 DX:HIV (human im munodeficiency virus infection) ([facility]) Family History Medical History Relation Name Comments [...] Recently Relevant to Health Maintenance Care Teams Can Marker Relationship Specialty Start Date End Date Norbert Cosme NP [facility] [address] [place] [address] PCP - General Nurse Practitioner 06/28/24
--- OUTSIDE RECORDS SUMMARY | 2024-07-10 18:26 | XMS_ITS | Encounter Summary ---
Author Organization [facility] Address [address] [place] [phone] Care Team Providers Care Labeling Machine Operator Name Role Phone BaNorbert tomas JENNIFER Primary Care Provider [phone] Reason for Visit * Reason Onset Date Comments SPECIAL PROCEDURE 06/28/2024 Encounter Details Date Type Department Care Team (Late st Contact Info) Description 06/28/2024 Telephone Gastroenterology - [address] [place] [phone] Gordon Meza MD [address] [place] [address] SPECIAL PROCEDURE Social History Tobacco Use Types [...] documented as of this encounter Care Teams Labeling Machine Operator Relationship Specialty Start Date End Date Norbert Cosme NP [facility] [address] [place] [address] PCP - General Nurse Practitioner 06/28/24 documented as of this encounter
[2024-07-13 14:01] LABS: HPV Genotype 16 Negative (Negative); HPV Genotype 18 Negative (Negative); HPV High Risk Negative (Negative)
[2024-07-28 11:34] LABS: HPV MRNA E6/E7 Rectal NOT DETECTED
== END 2024-07-10 14:31 | disposition home or self-care (01) ==
LOC: HO.LNP 14:30
PROVIDERS: PCP Nurse Practitioner; Visit Provider Advanced Practice Midwife
DX: Z21 Asymptomatic human immunodeficiency virus [HIV] infection status (principal); Z01.419 Encounter for gynecological examination (general) (routine) without abnormal findings; Z11.3 Encounter for screening for infections with a predominantly sexual mode of transmission
CPT/HCPCS: 87624; 87626; 88112; 88175

== ENCOUNTER 2024-07-10 14:30 | Outpatient (AMB) | payer OTHER, SELFPAY ==
--- NOTE | 2024-07-10 14:33 | A.OFFVIS_ITS ---
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 She is doing well with no photoengraving etcher apprentice concerns. Currently sexually active. Denies any vaginal dryness or irritation. STI testing offered; she declines. Attempting to eat a healthy diet with calcium and vitamin D and stays active with exercise. Last pap smear; years ago. History of hysterectomy for heavy menstrual bleeding and fibroids. Last mammogram; 2023. Has a consult for Colonoscopy. Denies any family history of breast, ovarian or colon cancer. [facility] Medical History HIV (human immunodeficiency virus infection) Surgical History History of total abdominal hysterectomy and bilateral salpingo-oophorectomy Social History Alcohol intake: never Patient Tobacco Use Status: Never used Tobacco Female Reproductive History Menstrual Menopause type: surgical Total pregnancies: 2 Full term: 2 Number of Living Children: 2 Date of Mammogram: 01/28/24 (Birad 2) Review of Systems Const All systems reviewed & are unremarkable except as noted in HPI and below Reports as per HPI Eyes Reports no additional complaints ENT Reports no additional complaints Card Reports no additional complaints Resp Reports no additional complaints GI Reports as per HPI and Reports no additional complaints Reports as per HPI Musc Reports no additional complaints Skin/Breast Reports as per HPI Neuro Reports no additional complaints Psych Reports no additional complaints Endo Reports no additional complaints Quinten/Lymph Reports no additional complaints Aller/Immun Reports no additional complaints Physical Exam Vital Signs: Last Vital Signs BP 122/84 07/10/24 14:35 BMI result Body Mass Index 27.6 Const General: cooperative, healthy appearing, no acute distress, well developed and alert Orientation/consciousness: patient oriented x3 HEENT Head: Yes normal to inspection Eyes General: appearance normal, both eyes and all related structures Neck Neck: Yes normal visual inspection Thyroid: Thyroid normal Chest Chest palpation & inspection: normal inspection of the chest and other (no puckering, dimpling, peau de orange, retraction, discharge, masses) Breast/axilla inspection: normal inspection of the breasts Breast/axilla palpation: normal palpation of the breasts Resp Effort & Inspection: normal respiratory effort GI Inspection: Yes normal to inspection Palpation (GI): Soft to palpation Rectal Exam - Female: visual inspection normal, normal sphincter tone and other (Rectal Pap smear obtained) General: Yes bladder normal to palpation External Female Exam: normal external appearance and normal appearance of the urethra Speculum Exam - Vagina: normal appearance of the vagina, normal palpation, normal vaginal discharge and vagina atrophic Speculum Exam - Cervix: normal appearance of the cervix, normal palpation and Other cervical findings present (Atrophic changes, bled slightly with Pap) Bimanual exam- vagina & uterus: normal bimanual exam, normal palpation, bladder normal to palpation, normal palpation and uterus absent Bimanual Exam- Adnexa, other: no masses Skin General skin exam: no rashes or lesions noted Rashes: no rashes Neuro General: patient oriented x3 Cognition (Neuro): normal cognition Extrem General: Yes normal to inspection Psych Attitude: cooperative Thought process: Normal thought process present Assessment & Plan Assessment & Plan (1) HIV (human immunodeficiency virus infection): Code(s): B20 - Human immunodeficiency virus [HIV] disease Category: Medical Qualifiers: HIV symptom status: unspecified Qualified Code(s): Z21 - Asymptomatic human immunodeficiency virus [HIV] infection status Plan: Rectal Pap obtained, await results for plan of care. (2) Encounter for well woman exam with routine gynecological exam: Code(s): Z01.419 - Encounter for gynecological examination (general) (routine) without abnormal findings Category: Medical Plan: Discussed: Current recommendations for pap smears per ASCCP guidelines. Cervical Pap obtained. Breast awareness, periodic self breast exams and yearly mammogram. Maintain a healthy lifestyle, well balanced diet including Calcium 1,200 mg and Vitamin D 600 IU daily, and routine exercise. Handouts on osteoporosis prevention and dietary information provided. Contact the office with any postmenopausal bleeding. Patient verbalizes understanding and agrees to the plan of care. She was given opportunity to ask questions and all questions were answered to the best of my ability. RTO in 1 year for annual photoengraving etcher apprentice exam. This note is constructed using voice recognition software. While every effort has been made to ensure accuracy, ball machine operator errors may have been included. Plan Rectal Pap obtained await results for plan of care. Orders: Orders Cytology Today Z21 - Asymptomatic human immunodeficiency virus [HIV] infection status HPV High risk Today Z01.419 - Encounter for gynecological examination (general) (routine) without abnormal findings, Z21 - Asymptomatic human immunodeficiency virus [HIV] infection status Pap Smear Today Z01.419 - Encounter for gynecological examination (general) (routine) without abnormal findings, Z21 - Asymptomatic human immunodeficiency virus [HIV] infection status Coding Level of Care Code New Pt Prev Care >65yr (11783) Diagnoses HIV infection, unspecified symptom status Z21 HIV symptom status: unspecified Encounter for well woman exam with routine gynecological exam Z01.419
[2024-07-10 14:35] VITALS: BP 122/84; BMI 27.6
--- OUTSIDE RECORDS SUMMARY | 2024-07-10 17:44 | XMS_ITS | Clinical Summary ---
Author Organization [address] Address [address] [place] [phone] Phone Care Team Providers Care Diver Tender Name Role Phone BaNorbert tomas JENNIFER Primary Care Provider [phone] Allergies No known active allergies Medications efavirenz/emtri cit/tenofovr df (ATRIPLA ORAL) Take by mouth. 06/30/19 25 Discontinued Active Problems Problem Noted Date Diagnosed Date HIV (human immunodeficiency virus infection) ([facility] V24, [facility] V28) 09/04/2014 Overview (04/13/2024): Followed by Donna Kasper Encounters Date Type Department Care Team Description 06/28/2024 Telephone Gastroenterology - [address] [place] [phone] Gordon Meza MD SPECIAL PROCEDURE from [...] Date Comments HIV (human immunodeficiency virus infection) ([facility] V24, [facility] V28) DX:HIV (human im munodeficiency virus infection) ([facility]) HIV (human immunodeficiency virus infection) ([facility] V24, [facility] V28) 09/04/2014 DX:HIV (human im munodeficiency virus infection) ([facility]) Family History Medical History Relation [...] Years (1 of 2 - PCV) 1977 Hepatitis B Vaccines (2 of 3 - Risk 3-dose series) 07/11/1996 06/13/1996, 12/13/1994 MMR Vaccines (1 of 2 - Risk 2-dose series) 07/11/1996 Zoster Vaccines (1 of 2) 08/08/1996 06/13/1996 RSV Immunization Adult Patients (1 - Risk [...] Procedure Name Priority Date/Time Associated Diagnosis Comments HEPATITIS C SCREENING Routine 08/03/2013 from Last 3 Months or Most Recently Relevant to Health Maintenance Results * Hepatitis C Screening (08/03/2013) Hepatitis C Screening abstracted Historical Provider MD HEALTH MAINTENANCE Final Result from Last 3 Months or Most Recently Relevant to Health Maintenance Care Teams Diver Tender Relationship Specialty Start Date End Date Norbert Cosme NP [facility] [address] [place] [address] PCP - General Nurse Practitioner 06/28/24
--- OUTSIDE RECORDS SUMMARY | 2024-07-10 17:44 | XMS_ITS | Encounter Summary ---
Author Organization [facility] Address [id number] [place] [phone] Care Team Providers Care Professional Golf Tournament Player Name Role Phone BaNorbert tomas JENNIFER Primary Care Provider [phone] Reason for Visit * Reason Onset Date Comments SPECIAL PROCEDURE 06/28/2024 Encounter Details Date Type Department Care Team (Late st Contact Info) Description 06/28/2024 Telephone Gastroenterology - [address] [place] [phone] Gordon Meza MD [address] [place] [address] SPECIAL PROCEDURE Social History Tobacco Use Types [...] as of this encounter Progress Notes * Shalini Jones - 07/09/2024 11:14 AM EDT 3rd attempt to schedule an appointment patient left message to call back and letter sent * Vika Jalloh MA - 07/02/2024 1:25 [...] documented as of this encounter Care Teams Professional Golf Tournament Player Relationship Specialty Start Date End Date Norbert Cosme NP [facility] [address] [place] [address] PCP - General Nurse Practitioner 06/28/24 documented as of this encounter
== END 2024-07-10 15:25 | disposition home or self-care (01) ==
LOC: HO.HWS 14:30
PROVIDERS: PCP Nurse Practitioner; Visit Provider Advanced Practice Midwife
DX: Z01.419 Encounter for gynecological examination (general) (routine) without abnormal findings (principal); Z21 Asymptomatic human immunodeficiency virus [HIV] infection status
CPT/HCPCS: 99387; 99459

== ENCOUNTER 2024-07-23 10:04 | Outpatient (REF) | payer OTHER, SELFPAY ==
--- OUTSIDE RECORDS SUMMARY | 2024-07-23 11:40 | XMS_ITS | Encounter Summary ---
Author Organization [facility] Address [address] [place] [phone] Care Team Providers Care Bakery Products Checker Name Role Phone BaNorbert tomas JENNIFER Primary Care Provider [phone] Reason for Visit * Reason Onset Date Comments SPECIAL PROCEDURE 06/28/2024 Encounter Details Date Type Department Care Team (Late st Contact Info) Description 06/28/2024 Telephone Gastroenterology - [address] [place] [phone] Gordon Meza MD [address] [place] [address] SPECIAL PROCEDURE Social History Tobacco Use Types [...] encounter Progress Notes * Shalini Jones - 07/23/2024 9:26 AM EDT 2nd attempt to schedule an appointment patient left message to call back Screening-any * Faina Shields - 07/20/2024 2:45 PM EDT Pt returning your call * Alejandra Garcia MA - 07/20/2024 9:06 AM EDT 1st attempt to schedule an appointment patient left message to call back * Shania Rust - 07/19/2024 3:26 PM EDT PT IS CALLING TO BOOK COLON * Shalini Jones - 07/09/2024 11:14 AM [...] documented as of this encounter Care Teams Bakery Products Checker Relationship Specialty Start Date End Date Norbert Cosme NP [facility] [address] [place] [address] PCP - General Nurse Practitioner 06/28/24 documented as of this encounter
--- OUTSIDE RECORDS SUMMARY | 2024-07-23 11:40 | XMS_ITS | Clinical Summary ---
Author Organization [address] Address [address] [place] [phone] Phone Care Team Providers Care Church Communications Administrator Name Role Phone BaNorbert tomas JENNIFER Primary Care Provider [phone] Allergies No known active allergies Medications efavirenz/emtri cit/tenofovr df (ATRIPLA ORAL) Take by mouth. 06/30/19 25 Discontinued Active Problems Problem Noted Date Diagnosed Date HIV (human immunodeficiency virus infection) ([facility] V24, [facility] V28) 09/04/2014 Overview (04/13/2024): Followed by Donna Kasper Encounters Date Type Department Care Team Description 06/28/2024 Telephone Gastroenterology - [address] [place] [phone] Gordon Meza MD SPECIAL PROCEDURE from [...] Date Comments HIV (human immunodeficiency virus infection) ([facility] V24, [facility] V28) DX:HIV (human im munodeficiency virus infection) ([facility]) HIV (human immunodeficiency virus infection) ([facility] V24, [facility] V28) 09/04/2014 DX:HIV (human im munodeficiency virus infection) ([facility]) Family History Medical History Relation Name [...] Recently Relevant to Health Maintenance Care Teams Church Communications Administrator Relationship Specialty Start Date End Date Norbert Cosme NP [facility] [address] [place] [address] PCP - General Nurse Practitioner 06/28/24
== END 2024-07-23 10:05 | disposition home or self-care (01) ==
LOC: HO.LNP 10:04
PROVIDERS: Visit Provider Advanced Practice Midwife
DX: Z13.89 Encounter for screening for other disorder (principal)

== ENCOUNTER 2025-02-02 07:59 | Outpatient (REF) | payer OTHER, SELFPAY ==
--- OUTSIDE RECORDS SUMMARY | 2025-02-02 08:02 | XMS_ITS | Clinical Summary ---
Author Organization [facility] [address] [facility] Address [address] [place] [address] Phone Care Team Providers Care Lean Engineer Name Role Phone Norbert Cosme NP Primary Care Provider [phone] Allergies No known active allergies Medications bisacodyL (DULCOLAX) 5 mg EC tablet Take 2 tablets by mouth right before beginning bowel prep. See instructions provided by the office 2 tablet 5 Active polyethylene glycol (Golytely) 236-22.74-6.74 -5.86 gram solution Take 4L by mouth once for one dose. May substitue any PEG. Starting at 6PM the night before your procedure drink 1 8oz glasses at your own pace until you complete half of the gallon. Finish 2nd half of the gallon 5 hours before your procedure. 4000 mL 5 Active Active Problems Problem Noted Date Diagnosed Date HIV (human immunodeficiency virus infection) ([facility] V24, [facility] V28) 09/04/2014 Overview (04/13/2024): Followed by Donna Kasper Immunizations Immunization Administration Dates Next Due Hep B, Unspecified [...] Date Comments HIV (human immunodeficiency virus infection) ([facility] V24, [facility] V28) DX:HIV (human im munodeficiency virus infection) ([facility]) HIV (human immunodeficiency virus infection) ([facility] V24, [facility] V28) 09/04/2014 DX:HIV (human im munodeficiency virus infection) ([facility]) Family History Medical History Relation Name Comments Other: Other Father heart disease a t age 78 Relation Name Status Comments Father Social History Tobacco Use Types Packs/Day Years Used Date Smoking Tobacco: Former Cigarettes Q uit: 03/28/1989 Smokeless Tobacco: Never Alcohol Use Standard Drinks/Week Comments Yes 0 (1 standard drink = 0.6 oz pur e alcohol) socially Interpersonal Safety Answer Date Record ed Physical Abuse Unrecognized value 10/10/2024 Verbal Abuse Unrecognized value 10/10/2024 Comments No Sex and Gender Information Value Date Recorded Sex Assigned at Not on file Legal Sex Female 3:32 PM EST Gender Identity Not on file Sexual Orientation Not on file Obstetrics History Last Filed Vital Signs Vital Sign Reading Time Taken Comments Blood Pressure 108/60 10/10/2024 9:24 AM EDT Pulse 80 10/10/2024 9:24 AM EDT Temperature 36.3 C (97.3 F) 10/10/2024 9:04 AM EDT Respiratory Rate 14 10/10/2024 9:24 AM EDT Oxygen Saturation 100% 10/10/2024 9:24 AM EDT Inhaled Oxygen Concentration - - Weight 63 kg (139 lb) 10/10/2024 8:22 AM EDT Height 154.9 cm (5' 1 ) 10/10/2024 8:22 AM EDT Body Mass Index 26.26 10/10/2024 8:22 AM EDT Plan of Treatment Health Maintenance Due Date Last Done Comments Breast Cancer Screening 1960 Meningococcal ACWY Vaccine (1 - Risk 2-dose series) 1960 Pneumococcal Vaccine: 50+ Years (1 of 2 - PCV) 1977 Hepatitis B Vaccines (2 of 3 - Risk 3-dose series) 07/11/1996 06/13/1996, 12/13/1994 MMR Vaccines (1 of 2 - Risk 2-dose series) 07/11/1996 Zoster Vaccines (1 of 2) 08/08/1996 06/13/1996 RSV Immunization Adult Patients (1 - Risk 50-74 years 1-dose series) 2008 Hepatitis A Vaccines (2 of 2 - Risk 2-dose series) 01/27/2023 07/27/2022, 11/24/2005, 05/03/2005 Depression Screening 03/28/2024 Social Influencers of Health Screening 04/12/2024 COVID-19 Vaccine ( - season) 2024 03/11/2022, 07/05/2021, 02/02/2021, Additional history exists Influenza Vaccine (#1) 2024 , 12/28/2022, 01/18/2022, Additional history exists DTaP,Tdap,and Td Vaccines (6 - Td or Tdap) 05/09/2025 05/09/2015, 04/16/2009, 02/13/2008, Additional history exists Osteoporosis Screening (Bone Density Screening) 05/27/2025 05/28/2015 Falls Risk Assessment 10/10/2025 10/10/2024 Colorectal Cancer Screening: Colonoscopy 10/10/2029 10/10/2024, 10/08/2014, 10/08/2014 Varicella Vaccines Aged Out 06/13/1996 No longer [...] Procedure Name Priority Date/Time Associated Diagnosis Comments COLONOSCOPY Routine 10/10/2024 9:03 AM EDT Colon cancer screening HEPATITIS C SCREENING Routine 08/03/2013 from Last 3 Months or Most Recently Relevant to Health Maintenance Results * COLONOSCOPY Anesthesia - MAC; [facility] ENDOSCOPY (10/10/2024 9:03 AM EDT) Anatomical Region Laterality Modality Endoscopy 10/10/2024 8:44 AM EDT Impressions 10/10/2024 9:05 AM EDT - Diverticulosis in the entire examined colon. - Non-bleeding internal hemorrhoids. - The examination was otherwise normal on direct and retroflexion views. - No specimens collected. Recommendation: - Discharge patient to home. - High fiber diet. - Continue present medications. - Repeat colonoscopy in 10 years for surveillance. - Return to GI office PRN. Narrative 10/10/2024 9:[address] [facility] GI Patient Name: Amando Jimenez Procedure Date: 10/10/2024 8:44 AM Date of : 1960 Age: 64 Room: ROOM 15 Gender: Female Note Status: Finalized Attending MD: Clovis Nunez MD, Procedure Date No Time: 10/10/2024 Procedure: Colonoscopy Indications: Screening for colorectal malignant neoplasm Providers: Clovis Nunez MD Referring MD: Clovis Nunez MD Medicines: Monitored Anesthesia Care Complications: No immediate complications. Estimated Blood Loss: Estimated blood loss: none. Procedure: Pre-Anesthesia Assessment: - ASA Grade Assessment: II - A patient with mild systemic disease. - After reviewing the risks and benefits, the patient was deemed in satisfactory condition to undergo the procedure. After I obtained informed consent, the scope was passed under direct vision. Throughout the procedure, the patient's blood pressure, pulse, and oxygen saturations were monitored continuously.The Colonoscope was introduced through the anus and advanced to the cecum, identified by appendiceal orifice and ileocecal valve. The colonoscopy was performed without difficulty. The patient tolerated the procedure well. The quality of the bowel preparation was good. Findings: Scattered small and large-mouthed diverticula were found in the entire colon. Non-bleeding internal hemorrhoids were found during retroflexion. The hemorrhoids were small. The exam was otherwise without abnormality on direct and retroflexion views. Procedure Code(s): --- Professional --- G0121, Colorectal cancer screening; colonoscopy on individual not meeting criteria for high risk Diagnosis Code(s): --- Professional --- Z12.11, Encounter for screening for malignant neoplasm of colon CPT copyright 2020 [employer]. All rights reserved. The codes documented in this report are preliminary and upon oyster culturist review may be revised to meet current compliance requirements. Clovis Nunez MD 10/10/2024 9:05:26 AM This report has been signed electronically.Clovis Nunez MD Number of Addenda: 0 Note Initiated On: 10/10/2024 8:44 AM Scope In: Scope Out: Endoscopy Department at [facility] - [address] [place] [id number] Procedure Note Clovis Nunez MD - 10/10/2024 [facility] GI Patient Name: Amnado Jimenez Procedure Date: 10/10/2024 8:44 AM Date of : 1960 Age: 64 Room: ROOM 15 Gender: Female Note Status: Finalized Attending MD: Clovis Nunez MD, Procedure Date No Time: 10/10/2024 Procedure: Colonoscopy Indications: Screening for colorectal malignant neoplasm Providers: Clovis Nunez MD Referring MD: Clovis Nunez MD Medicines: Monitored Anesthesia Care Complications: No immediate complications. Estimated Blood Loss: Estimated blood loss: none. Procedure: Pre-Anesthesia Assessment: - ASA Grade Assessment: II - A patient with mild systemic disease. - After reviewing the risks and benefits, thepatient was deemed in satisfactory condition to undergo the procedure. After I obtained informed consent, the scope was passed under direct vision. Throughout theprocedure, the patient's blood pressure, pulse, and oxygen saturations were monitored continuously.The Colonoscope was introduced through the anus and advanced to the cecum, identified by appendiceal orifice and ileocecal valve. The colonoscopy was performed without difficulty. The patient tolerated the procedure well. The quality of the bowel preparation was good. Findings: Scattered small and large-mouthed diverticula were found in the entire colon. Non-bleeding internal hemorrhoids were found during retroflexion. The hemorrhoids were small. The exam was otherwise without abnormality ondirect and retroflexion views. Procedure Code(s): --- Professional --- G0121, Colorectal cancer screening; colonoscopy on individual not meeting criteria for high risk Diagnosis Code(s): --- Professional --- Z12.11, Encounter for screening for malignantneoplasm of colon CPT copyright 2020 [employer]. All rights reserved. The codes documented in this report are preliminary and upon oyster culturist reviewmay be revised to meet current compliance requirements. Clovis Nunez MD 10/10/2024 9:05:26 AM This report has been signed electronically.Clovis Nunez MD Number of Addenda: 0 Note Initiated On: 10/10/2024 8:44 AM Scope In: Scope Out: Endoscopy Department at [facility] - [address] [place] [id number] IMPRESSION: - Diverticulosis in the entire examined colon. - Non-bleeding internal hemorrhoids. - The examination was otherwise normal on directand retroflexion views. - No specimens collected. Recommendation: - Discharge patient to home. - High fiber diet. - Continue present medications. - Repeat colonoscopy in 10 years forsurveillance. - Return to GI office PRN. Clovis Nunez MD GI~PROCEDURE ORDERABLES Final Result * Hepatitis C Screening (08/03/2013) Hepatitis C Screening abstracted Historical Provider HEALTH MAINTENANCE Final Result from Last 3 Months or Most Recently Relevant to Health Maintenance Insurance [id number] [place] [address] [address] [place] [address] Care Teams Lean Engineer Relationship Specialty Start Date End Date Norbert Cosme NP [facility] [address] [place] [address] PCP - General Nurse Practitioner 06/28/24
== END 2025-02-02 08:00 | disposition home or self-care (01) ==
LOC: HO.MAMMO 07:59
PROVIDERS: Visit Provider Internal Medicine
DX: Z12.31 Encounter for screening mammogram for malignant neoplasm of breast (principal)
CPT/HCPCS: 77063; 77067

== ENCOUNTER → 2025-02-02 08:15 | Outpatient (BNV) | payer OTHER, SELFPAY | PROVIDERS: Visit Provider Internal Medicine | DX: Z12.31 Encounter for screening mammogram for malignant neoplasm of breast (principal) | CPT/HCPCS: 77063; 77067 ==